=== PATIENT | male | born 1940 | race Caucasian/White ===

== ENCOUNTER 2022-10-30 13:09 | Emergency (ER) | payer MEDICARE, MEDICAID ==
[~2022-10-30] VITALS: Ht 172.7 cm; Wt 61.4 kg
[~2022-10-30 13:09] MED LIST: ACET-2247 PO; CEFX2I IM; CITA10TA99 PO; DOCU-385 PO; FAMO20 PO; LEVO-72 PO
[2022-10-30] MEDS ORDERED: ACETAMINOPHEN 500 MG TABLET PO ONE (13:15)
[2022-10-30] MEDS ORDERED: MAG HYDROX/AL HYDROX/SIMETH 30 ML SUSP UDCUP PO ONE (13:15)
[2022-10-30] MEDS ORDERED: FAMOTIDINE 10 MG/ML 2 ML VIAL IVP ONE (13:15)
[2022-10-30] MEDS ORDERED: HYDR25TA PO (13:21)
[2022-10-30] MEDS ORDERED: OXYB5TAB20 PO (13:21)
[2022-10-30] MEDS ORDERED: SIMV-46 PO (13:21)
[2022-10-30] MEDS ORDERED: CARV12.530 PO (13:21)
[2022-10-30] MEDS ORDERED: LORA10TA7 PO (13:21)
[2022-10-30] MEDS ORDERED: FERR325T23 PO (13:21)
[2022-10-30] MEDS ORDERED: SERT-440 PO (13:22)
[2022-10-30] MEDS ORDERED: ISOS30TA92 PO (13:22)
[2022-10-30] MEDS ORDERED: OMEP20CA12 PO (13:22)
[2022-10-30] MEDS ORDERED: BUSP15 PO (13:22)
[2022-10-30 13:35] LABS: BASOPHILS % (AUTO) 0.7 % (0.0-2.0); EOSINOPHILS % (AUTO) 1.5 % (1.0-6.0); HEMATOCRIT 38.1 % (41-53); HEMOGLOBIN 12.9 g/dL (13.5-17.5); LYMPHOCYTES % (AUTO) 6.7 % (22.0-44.0); MEAN CORPUSCULAR HEMOGLOBIN 32.1 pg (26.0-34.0); MEAN CORPUSCULAR HGB CONC 33.7 G/dL (31.0-37.0); MEAN CORPUSCULAR VOLUME 95 fL (80-100); MONOCYTES # (AUTO) 1.6 K/uL (0.1-1.0); MONOCYTES % (AUTO) 10.8 % (2.0-9.0); NEUTROPHILS # (AUTO) 11.8 K/uL (1.8-7.7); NEUTROPHILS % (AUTO) 80.3 % (40.0-70.0); PLATELET COUNT (AUTO) 270 K/uL (150-450); RED CELL DISTRIBUTION WIDTH 14.2 % (11.5-14.5)
[2022-10-30 13:52] LABS: ANION GAP 9 mmol/L (8-16); CALCIUM, TOTAL 9.2 mg/dL (8.8-10.5); CARBON DIOXIDE 31 mmol/L (22-29); CHLORIDE 100 mmol/L (98-107); CREATININE 0.98 mg/dL (0.60-1.30); GLOMERULAR FILTR. RATE CALC > 60 mL/min (>60); GLUCOSE,RANDOM 102 mg/dL (70-110); POTASSIUM 3.2 mmol/L (3.5-5.1); SODIUM SERUM 140 mmol/L (136-145); UREA NITROGEN, BLOOD 15 mg/dL (7-18)
[2022-10-30 13:52] LABS: COVID AG,FIA SOURCE NASOPHARYNGEAL
[2022-10-30 13:55] LABS: PROTHROMBIN TIME 10.6 SEC (9.4-11.6)
[2022-10-30 13:58] LABS: ALANINE AMINOTRANSFERASE 16 U/L (12-78); ALBUMIN 3.9 g/dL (3.4-5.0); ALKALINE PHOSPHATASE 111 U/L (46-116); ASPARTATE AMINOTRANSFERASE 20 U/L (15-37); BILIRUBIN,TOTAL 0.2 mg/dL (0.1-1.0); CREATINE KINASE, TOTAL ONLY 74 U/L (39-308); TOTAL PROTEIN, SERUM 7.7 g/dL (6.4-8.2)
[2022-10-30 13:59] LABS: B-TYPE NATRIURETIC PEPTIDE 155 pg/mL (0-100)
[2022-10-30 14:09] LABS: LIPASE 136 U/L (73-393)
[2022-10-30] MEDS ORDERED: ONDANSETRON HCL 4 MG/2 ML VIAL IVP ONE (14:15)
[2022-10-30 14:50] LABS: LACTIC ACID 2.2 mmol/L (0.4-2.0)
[2022-10-30] MEDS ORDERED: SODIUM CHLORIDE 0.9% 1,000 ML IV ONE (15:00)
[2022-10-30 15:04] LABS: INFLUENZA TYPE A NEGATIVE FOR TYPE A (NEGATIVE); INFLUENZA TYPE B NEGATIVE FOR TYPE B (NEGATIVE)
[2022-10-30] MEDS ORDERED: IOHEXOL 350 MG/ML 100 ML VIAL ONE (15:18)
[2022-10-30] MEDS ORDERED: SODIUM CHLORIDE 0.9% 100 ML ONE (15:18)
[2022-10-30] MEDS ORDERED: AZITHROMYCIN 500 MG/NS 250 ML IV ONE (18:15)
[2022-10-30] MEDS ORDERED: CefTRIAXone 1 GM/DEXTROSE 50 ML IV ONE (18:15)
[2022-10-30 18:47] LABS: APPEARANCE,URINE CLEAR (CLEAR); SPECIFIC GRAVITIY, URINE 1.005 (1.003-1.030)
[2022-10-30 18:48] LABS: PH,URINE 6.5 (5.0-8.0)
[2022-10-30 18:50] LABS: BILIRUBIN,URINE NEGATIVE (NEGATIVE); GLUCOSE, URINE (UA) NEGATIVE (NEGATIVE); KETONES,URINE NEGATIVE (NEGATIVE); LEUKOCYTE ESTERASE ,URINE NEGATIVE (NEGATIVE); NITRATE,URINE NEGATIVE (NEGATIVE); OCCULT BLOOD,URINE NEGATIVE (NEGATIVE); PROTEIN,URINE NEGATIVE (NEGATIVE); UROBILINOGEN,URINE <=1.0 mg/dL (<=1.0)
[2022-10-30 20:55] VITALS: BP 112/71
== END 2022-10-30 21:35 | disposition short-term general hospital (02) ==
LOC: EMS 13:11
DX: J18.9 Pneumonia, unspecified organism (principal); R07.9 Chest pain, unspecified; R09.02 Hypoxemia; F41.9 Anxiety disorder, unspecified; J45.909 Unspecified asthma, uncomplicated; F32.A Depression, unspecified; E78.00 Pure hypercholesterolemia, unspecified; I10 Essential (primary) hypertension; F17.210 Nicotine dependence, cigarettes, uncomplicated; Z20.822 Contact with and (suspected) exposure to COVID-19
CPT/HCPCS: 99285; 96365; 71275; 96361; 71045; 96366; 96375; 87426; 80053; 81003; 82550; 83605; 83690; 83880; 84484; 85025; 85610; 85730; 87040; 87804; 93005; 36415; J0456; J0696; J3490; J2405; Q9967; J7030; J7050